=== PATIENT | male | born 1980 | race Caucasian/White ===

== ENCOUNTER → 2022-05-25 | Outpatient (CLI) | payer OTHER ==
[~2022-05-25] MED LIST: ALBU8HFA2 INH; ALBU90OI INH; CETI10 PO; ERYT.5TO RIGHTEYE; FEXPSEER PO; Norco 10-325 T1 EACH PO; PRED20 PO; SPACER IH
== END | disposition home or self-care (01) ==
LOC: LAB SHORT 09:09
DX: Q82.5 Congenital non-neoplastic nevus (principal)
CPT/HCPCS: 88305

== ENCOUNTER → 2023-10-12 | Outpatient (CLI) | payer OTHER | LOC: LAB 10:46 → LAB SHORT 10:46 | DX: D22.72 Melanocytic nevi of left lower limb, including hip (principal) | CPT/HCPCS: 88305 ==